=== PATIENT | male | born 1955 | race Caucasian/White ===

== ENCOUNTER 2016-10-12 07:24 | Outpatient (CLI) | payer MEDICAID ==
[2016-10-12 13:13] LABS: BASOPHILS % (AUTO) 0.6 %; EOSINOPHILS # (AUTO) 0.2 10^3/uL (0.0-0.7); EOSINOPHILS % (AUTO) 3.6 %; HCT - HEMATOCRIT 44.1 % (42.0-52.0); HGB - HEMOGLOBIN 15.6 g/dL (14.0-18.0); LYMPHOCYTES # (AUTO) 1.3 10^3/uL (1.5-3.5); LYMPHOCYTES % (AUTO) 25.5 %; MEAN CORPUSCULAR HEMOGLOBIN 31.3 pg (27.0-31.0); MEAN CORPUSCULAR HGB CONC 35.2 g/dL (32.0-36.0); MEAN CORPUSCULAR VOLUME 88.8 fL (80.0-94.0); MEAN PLATELET VOLUME 8.1 fL (7.4-11.4); MONOCYTES # (AUTO) 0.3 10^3/uL (0.0-1.0); MONOCYTES % (AUTO) 6.7 %; NEUTROPHILS # (AUTO) 3.2 10^3/uL (1.5-6.6); NEUTROPHILS % (AUTO) 63.6 %; NUCLEATED RED BLOOD CELLS AUTO 0.1 /100WBC; RED BLOOD COUNT 4.97 10^6/uL (4.70-6.10); RED CELL DISTRIBUTION WIDTH 12.6 % (12.0-15.0)
[2016-10-12 13:33] LABS: ALBUMIN/GLOBULIN RATIO 1.7 (1.0-2.2); BUN - BLOOD UREA NITROGEN 14 mg/dL (6-20); CALCIUM 9.4 mg/dL (8.5-10.3); CARBON DIOXIDE - CO2 27 mmol/L (21-32); CHLORIDE 105 mmol/L (101-111); CHOL/HDL RATIO 4.9 (<5.0); CHOLESTEROL 234 mg/dL; CREATININE 1.1 mg/dL (0.6-1.2); GFR - MDRD 68 (>89); GLUCOSE 100 mg/dL (70-100); HDL CHOLESTEROL 48 mg/dL; LDL/HDL RATIO 3.3 (<3.6); POTASSIUM 3.9 mmol/L (3.5-5.0); SODIUM 139 mmol/L (135-145); TOTAL PROTEIN 7.2 g/dL (6.7-8.2); TRIGLYCERIDES 138 mg/dL; VLDL CHOLESTEROL 28 mg/dL
== END 2016-10-12 07:25 | disposition home or self-care (01) ==
LOC: LAB.WCP 07:24
PROVIDERS: ATTEND Family Medicine
DX: R73.01 Impaired fasting glucose (principal); E78.5 Hyperlipidemia, unspecified; I10 Essential (primary) hypertension; Z12.5 Encounter for screening for malignant neoplasm of prostate
CPT/HCPCS: 36415; 80053; 80061; 84153; 84443; 85025

== ENCOUNTER 2017-05-14 14:22 | Outpatient (CLI) | payer MEDICAID ==
--- NOTE | 2017-05-14 15:31 | XRAY Report ---
THREE VIEW RIGHT FOOT: 05/14/2017 CLINICAL INDICATION: Chronic pain. FINDINGS: AP, lateral, oblique views of the right foot demonstrate moderate osteoarthritis of the first metatarsophalangeal joint. There is no evidence of acute fracture or dislocation. No radiopaque foreign body is seen in the soft tissues. Tiny plantar calcaneal spur is noted. IMPRESSION: MODERATE OSTEOARTHRITIS OF THE FIRST METATARSOPHALANGEAL JOINT. TD: 05/14/2017 15:30
== END 2017-05-14 14:23 | disposition home or self-care (01) ==
LOC: DI 14:22
PROVIDERS: ATTEND Podiatrist
DX: M19.071 Primary osteoarthritis, right ankle and foot (principal)

== ENCOUNTER 2017-11-23 07:28 | Outpatient (CLI) | payer MEDICAID ==
[2017-11-23 12:50] LABS: THYROID STIMULATING HORMONE 1.55 uIU/mL (0.34-5.60)
[2017-11-23 12:53] LABS: ALBUMIN 4.4 g/dL (3.2-5.5); ALBUMIN/GLOBULIN RATIO 1.8 (1.0-2.2); ALKALINE PHOSPHATASE 49 IU/L (42-121); ALT ALANINE AMINOTRANSFERASE 23 IU/L (10-60); AST ASPARTATE AMINOTRANSFERASE 19 IU/L (10-42); BILIRUBIN,TOTAL 1.3 mg/dL (0.2-1.0); BUN - BLOOD UREA NITROGEN 14 mg/dL (6-20); CALCIUM 9.6 mg/dL (8.5-10.3); CARBON DIOXIDE - CO2 28 mmol/L (21-32); CHLORIDE 104 mmol/L (101-111); CHOL/HDL RATIO 4.4 (<5.0); CHOLESTEROL 222 mg/dL; GFR - MDRD 76 (>89); GLUCOSE 107 mg/dL (70-100); HDL CHOLESTEROL 50 mg/dL; LDL CHOLESTEROL,CALCULATED 147 mg/dL; LDL/HDL RATIO 2.9 (<3.6); SODIUM 140 mmol/L (135-145); TOTAL PROTEIN 6.9 g/dL (6.7-8.2); VLDL CHOLESTEROL 25 mg/dL
[2017-11-23 13:01] LABS: FOLATE 17.77 ng/mL (5.90 - >24.8)
[2017-11-23 13:02] LABS: BASOPHILS % (AUTO) 0.7 %; EOSINOPHILS # (AUTO) 0.1 10^3/uL (0.0-0.7); EOSINOPHILS % (AUTO) 3.1 %; HGB - HEMOGLOBIN 15.5 g/dL (14.0-18.0); LYMPHOCYTES # (AUTO) 1.2 10^3/uL (1.5-3.5); LYMPHOCYTES % (AUTO) 24.8 %; MEAN CORPUSCULAR HEMOGLOBIN 31.7 pg (27.0-31.0); MEAN CORPUSCULAR HGB CONC 34.9 g/dL (32.0-36.0); MEAN CORPUSCULAR VOLUME 90.8 fL (80.0-94.0); MEAN PLATELET VOLUME 7.8 fL (7.4-11.4); MONOCYTES # (AUTO) 0.3 10^3/uL (0.0-1.0); MONOCYTES % (AUTO) 6.6 %; NEUTROPHILS % (AUTO) 64.8 %; PLT - PLATELET COUNT 209 10^3/uL (130-450); RED BLOOD COUNT 4.88 10^6/uL (4.70-6.10); RED CELL DISTRIBUTION WIDTH 12.4 % (12.0-15.0); WHITE BLOOD COUNT 4.7 x10^3/uL (4.8-10.8)
== END 2017-11-23 07:29 | disposition home or self-care (01) ==
LOC: LAB.WCP 07:28
PROVIDERS: ATTEND Family Medicine
DX: I10 Essential (primary) hypertension (principal); R41.3 Other amnesia; E78.5 Hyperlipidemia, unspecified
CPT/HCPCS: 36415; 80053; 80061; 82607; 82746; 83721; 83921; 84153; 84443; 85025

== ENCOUNTER 2020-09-11 08:00 | Outpatient (CLI) | payer MEDICAID, OTHER ==
[2020-09-11 11:57] LABS: BASOPHILS % (AUTO) 0.7 %; EOSINOPHILS # (AUTO) 0.1 10^3/uL (0.0-0.7); EOSINOPHILS % (AUTO) 0.9 %; HCT - HEMATOCRIT 43.6 % (42.0-52.0); HGB - HEMOGLOBIN 14.9 g/dL (14.0-18.0); LYMPHOCYTES # (AUTO) 0.7 10^3/uL (1.5-3.5); LYMPHOCYTES % (AUTO) 12.7 %; MEAN CORPUSCULAR HEMOGLOBIN 30.8 pg (27.0-31.0); MEAN CORPUSCULAR HGB CONC 34.2 g/dL (32.0-36.0); MEAN CORPUSCULAR VOLUME 90.3 fL (80.0-94.0); MEAN PLATELET VOLUME 9.8 fL (7.4-11.4); MONOCYTES # (AUTO) 0.4 10^3/uL (0.0-1.0); MONOCYTES % (AUTO) 6.3 %; NEUTROPHILS # (AUTO) 4.6 10^3/uL (1.5-6.6); NEUTROPHILS % (AUTO) 78.7 %; PLT - PLATELET COUNT 194 10^3/uL (130-450); RED BLOOD COUNT 4.83 10^6/uL (4.70-6.10); RED CELL DISTRIBUTION WIDTH 11.8 % (12.0-15.0); WHITE BLOOD COUNT 5.8 x10^3/uL (4.8-10.8)
[2020-09-11 12:21] LABS: ALBUMIN 4.4 g/dL (3.2-5.5); ALBUMIN/GLOBULIN RATIO 1.8 (1.0-2.2); ALKALINE PHOSPHATASE 59 IU/L (42-121); ALT ALANINE AMINOTRANSFERASE 21 IU/L (10-60); AST ASPARTATE AMINOTRANSFERASE 19 IU/L (10-42); BILIRUBIN,TOTAL 1.4 mg/dL (0.2-1.0); BUN - BLOOD UREA NITROGEN 14 mg/dL (6-20); CALCIUM 9.5 mg/dL (8.5-10.3); CARBON DIOXIDE - CO2 30 mmol/L (21-32); CHLORIDE 104 mmol/L (101-111); CHOL/HDL RATIO 2.9 (<5.0); CHOLESTEROL 208 mg/dL; GFR - MDRD 75 (>89); GLUCOSE 99 mg/dL (70-100); HDL CHOLESTEROL 71 mg/dL; LDL CHOLESTEROL,CALCULATED 123 mg/dL; LDL/HDL RATIO 1.7 (<3.6); POTASSIUM 4.3 mmol/L (3.5-5.0); SODIUM 141 mmol/L (135-145); TOTAL PROTEIN 6.9 g/dL (6.7-8.2); TRIGLYCERIDES 68 mg/dL; VLDL CHOLESTEROL 14 mg/dL
[2020-09-11 12:26] LABS: THYROID STIMULATING HORMONE 1.35 uIU/mL (0.34-5.60)
== END 2020-09-11 23:59 | disposition home or self-care (01) ==
LOC: LAB.WCP 08:00
PROVIDERS: ATTEND Family Medicine
DX: E78.5 Hyperlipidemia, unspecified (principal); G30.9 Alzheimer's disease, unspecified; I10 Essential (primary) hypertension; Z12.5 Encounter for screening for malignant neoplasm of prostate; F02.80 Dementia in other diseases classified elsewhere, unspecified severity, without behavioral disturbance, psychotic disturbance, mood disturbance, and anxiety
CPT/HCPCS: 36415; 80053; 80061; 83721; 84153; 84443; 85025

== ENCOUNTER 2021-12-03 07:45 | Outpatient (CLI) | payer MEDICARE, OTHER ==
[2021-12-03 11:43] LABS: BASOPHILS % (AUTO) 0.4 %; EOSINOPHILS # (AUTO) 0.1 10^3/uL (0.0-0.7); EOSINOPHILS % (AUTO) 0.8 %; HCT - HEMATOCRIT 45.2 % (42.0-52.0); HGB - HEMOGLOBIN 14.9 g/dL (14.0-18.0); LYMPHOCYTES # (AUTO) 0.6 10^3/uL (1.5-3.5); LYMPHOCYTES % (AUTO) 6.3 %; MEAN CORPUSCULAR HEMOGLOBIN 29.7 pg (27.0-31.0); MEAN CORPUSCULAR VOLUME 90.2 fL (80.0-94.0); MEAN PLATELET VOLUME 9.9 fL (7.4-11.4); MONOCYTES # (AUTO) 0.6 10^3/uL (0.0-1.0); MONOCYTES % (AUTO) 6.7 %; NEUTROPHILS # (AUTO) 8.1 10^3/uL (1.5-6.6); NEUTROPHILS % (AUTO) 85.6 %; PLT - PLATELET COUNT 188 10^3/uL (130-450); RED BLOOD COUNT 5.01 10^6/uL (4.70-6.10); WHITE BLOOD COUNT 9.5 x10^3/uL (4.8-10.8)
[2021-12-03 12:37] LABS: ALBUMIN 4.5 g/dL (3.2-5.5); ALBUMIN/GLOBULIN RATIO 1.7 (1.0-2.2); CALCIUM 9.6 mg/dL (8.5-10.3); CREATININE 1.1 mg/dL (0.6-1.2); POTASSIUM 4.2 mmol/L (3.5-5.0); TOTAL PROTEIN 7.1 g/dL (6.7-8.2)
[2021-12-03 13:00] LABS: ESTIMATED AVERAGE GLUCOSE 103 mg/dL (70-100); HEMOGLOBIN A1c% 5.2 % (4.27-6.07)
== END 2021-12-03 07:46 | disposition home or self-care (01) ==
LOC: LAB.N 07:45
PROVIDERS: ATTEND Nurse Practitioner
DX: I10 Essential (primary) hypertension (principal); R73.01 Impaired fasting glucose; R97.20 Elevated prostate specific antigen [PSA]
CPT/HCPCS: 36415; 80053; 83036; 84153; 85025

== ENCOUNTER 2022-06-05 15:13 | Outpatient (CLI) | payer MEDICARE ==
--- NOTE | 2022-06-05 16:53 | Ultrasound Report ---
PROCEDURE: Testicle INDICATIONS: LT TESTICULAR PX TECHNIQUE: Real-time scanning was performed of the scrotum and testicles, with image documentation. Color and p ulse Doppler interrogation was performed of both testicles. COMPARISON: None. FINDINGS: Right: Testicle is normal in size at 4.4 x 2.2 x 3.0 cm, and homogenous in echotexture. Epididymis demonstrates an epididymal cyst measuring less than 5 mm. No varicoceles. Trace hydrocele. Overlying scrotal skin is normal in thickness. Left: Testicle is normal in size at 3.7 x 1.6 x 2.6 cm, and homogeneous in echotexture. Epididymis is normal in overall size and morphology. Mild increased vascularity is noted within the epididymis. No hydrocele. Mild varicocele is present. Overlying scrotal skin is normal in thickness. Doppler: Color and pulse Doppler demonstrate normal and symmetric arterial flow in both testicles. IMPRESSION: Mild increased vascularity within the left epididymis suggestive of epididymitis. No torsion identified at time of exam. Intermittent torsion cannot be excluded. Reviewed by: Lou Whitman MD on 06/05/2022 4:52 PM PDT Approved by: Lou Whitman MD on 06/05/2022 4:52 PM PDT Station ID: [id number]
== END 2022-06-05 15:14 | disposition home or self-care (01) ==
LOC: DI 15:13
PROVIDERS: ATTEND Family Medicine
DX: N50.812 Left testicular pain (principal)

== ENCOUNTER 2022-09-07 10:36 | Emergency (ER) | payer MEDICARE ==
[2022-09-07 10:54] VITALS: BP 136/79
[2022-09-07 11:02] LABS: BASOPHILS # (AUTO) 0.1 10^3/uL (0.0-0.1); BASOPHILS % (AUTO) 1.2 %; EOSINOPHILS # (AUTO) 0.2 10^3/uL (0.0-0.7); EOSINOPHILS % (AUTO) 4.7 %; HCT - HEMATOCRIT 42.7 % (42.0-52.0); HGB - HEMOGLOBIN 14.5 g/dL (14.0-18.0); LYMPHOCYTES # (AUTO) 0.8 10^3/uL (1.5-3.5); LYMPHOCYTES % (AUTO) 19.4 %; MEAN CORPUSCULAR HEMOGLOBIN 30.2 pg (27.0-31.0); MEAN PLATELET VOLUME 9.5 fL (7.4-11.4); MONOCYTES # (AUTO) 0.3 10^3/uL (0.0-1.0); MONOCYTES % (AUTO) 5.9 %; NEUTROPHILS # (AUTO) 2.9 10^3/uL (1.5-6.6); NEUTROPHILS % (AUTO) 68.6 %; PLT - PLATELET COUNT 162 10^3/uL (130-450); RED CELL DISTRIBUTION WIDTH 12.1 % (12.0-15.0); WHITE BLOOD COUNT 4.2 x10^3/uL (4.8-10.8)
[2022-09-07 11:18] LABS: ALBUMIN/GLOBULIN RATIO 1.9 (1.0-2.2); BILIRUBIN,TOTAL 0.6 mg/dL (0.2-1.0); CALCIUM 9.2 mg/dL (8.5-10.3); CREATININE 1.2 mg/dL (0.6-1.3); MAGNESIUM 1.8 mg/dL (1.7-2.3); PHOSPHORUS 2.6 mg/dL (3.7-7.2); POTASSIUM 3.9 mmol/L (3.5-4.5); TOTAL PROTEIN 6.1 g/dL (6.4-8.9)
--- NOTE | 2022-09-07 11:26 | ED Physician Documentation ---
PD HPI ABD PAIN - Stated complaint Stated Complaint: GI - Chief complaint Chief Complaint: Abd Pain - History obtained from History obtained from: Patient, Family - Additional information Additional information: 67-year-old gentleman with history of dementia. As such much of the history is from the who is at the bedside. He presents with several months worth of abdominal pain and diarrhea which was acutely worse over the last few days. It is not associate with nausea or weight loss. No fevers. Is unclear when his last colonoscopy was, and the states "he may never have had 1." No history of abdominal surgeries. PD PAST MEDICAL HISTORY - Present Medications Home Medications: Ambulatory Orders Medication Instructions Recorded Confirmed Dicyclomine [Bentyl] 1 - 2 tab PO QID PRN #20 cap 09/07/22 - Allergies Allergies/Adverse Reactions: Allergies Allergy/AdvReac Type Severity Reaction Status Date / Time No Known Drug Allergies Allergy Verified 09/07/22 11:22 PD ED PE NORMAL - Vitals Vital signs reviewed: Yes - General General: Other (Pleasantly demented and confused, most of the history is from the . He is ANO x1.) - Cardiac Cardiac: RRR, No murmur - Respiratory Respiratory: No respiratory distress, Clear bilaterally - Abdomen Abdomen: Other (Diminished but not absent bowel sounds, nontender.) - Derm Derm: No rash - Extremities Extremities: No edema, No calf tenderness / cord Results - Vitals Vitals: Vital Signs - 24 hr 09/07/22 10:44 Temperature 36.8 C Heart Rate 64 Respiratory 15 Rate Blood Pressure 136/79 H O2 Saturation 98 Oxygen O2 Source Room air - Labs Labs: Laboratory Tests 09/07/22 09/07/22 09/07/22 10:56 10:56 12:51 WBC 4.2 L RBC 4.80 Hgb 14.5 Hct 42.7 MCV 89.0 MCH 30.2 MCHC 34.0 RDW 12.1 Plt Count 162 MPV 9.5 Neut # (Auto) 2.9 Lymph # (Auto) 0.8 L [place] # (Auto) 0.3 Eos # (Auto) 0.2 Baso # (Auto) 0.1 Absolute Nucleated RBC 0.00 Nucleated RBC % 0.0 Sodium 139 Potassium 3.9 Chloride 106 Carbon Dioxide 31 Anion Gap 2.0 L BUN 20 Creatinine 1.2 Estimated GFR (MDRD) 61 L Glucose 134 H Calcium 9.2 Phosphorus 2.6 L Magnesium 1.8 Total Bilirubin 0.6 AST 13 ALT 14 Alkaline Phosphatase 53 Total Protein 6.1 L Albumin 4.0 Globulin 2.1 Albumin/Globulin Ratio 1.9 Urine Color YELLOW Urine Clarity CLEAR Urine pH 6.5 Ur Specific [place] 1.010 Urine Protein NEGATIVE Urine Glucose (UA) NEGATIVE Urine Ketones NEGATIVE Urine Occult Blood NEGATIVE Urine Nitrite NEGATIVE Urine Bilirubin NEGATIVE Urine Urobilinogen 0.2 (NORMAL) Ur Leukocyte Esterase NEGATIVE Ur Microscopic Review NOT INDICATED Urine Culture Comments NOT INDICATED - Rads (name of study) CT of the abdomen and pelvis is unremarkable Relevant Findings:: Final report received, EMP independent interpretation of test PD Medical Decision Making - ED course ED course: 67-year-old gentleman with subacute to chronic diarrhea with abdominal cramps worse over the last few days with benign exam. Lab work notable for mild lymphopenia, hypophosphatemia on CMP that was repleted orally and normal urinalysis. He was unable to produce a stool sample here but unlikely that would be helpful given the timeframe. No recent antibiotics. Discussed with who is his caregiver as he has dementia that he probably needs a colonoscopy and should seek a referral for same and we will trial dicyclomine in the interim. Departure - Departure Disposition: 01 Home, Self Care Clinical Impression: Diarrhea Qualifiers: Diarrhea type: unspecified type Qualified Code(s): R19.7 - Diarrhea, unspecified Abdominal pain Qualifiers: Abdominal location: generalized Qualified Code(s): R10.84 - Generalized abdominal pain Condition: Good Record reviewed to determine appropriate education?: Yes Instructions: ED Abdominal Pain Unkn Cause Male Follow-Up: Blaire Arrieta ARNP [Primary Care Provider] - Prescriptions: Dicyclomine [Bentyl] 1 - 2 tab PO QID PRN #20 cap PRN Reason: Abdominal Pain Comments: As discussed, no worrisome diagnostic findings today on labs or CT. Given the acuity and complaints though talk with your primary care nurse practitioner about referral for colonoscopy. Return for new or worsening symptoms.
[2022-09-07] MEDS ORDERED: iohexoL-300 100 ML VIAL ONE (11:42)
[2022-09-07] MEDS ORDERED: NEUTRA-PHOS 250 MG TABLET PO STA (13:12)
[2022-09-07 13:22] LABS: BILIRUBIN,URINE NEGATIVE (NEGATIVE); GLUCOSE, URINE (UA) NEGATIVE (NEGATIVE); KETONES,URINE (UA) NEGATIVE (NEGATIVE); LEUKOCYTE ESTERASE, URINE NEGATIVE (NEGATIVE); NITRITE,URINE NEGATIVE (NEGATIVE); OCCULT BLOOD,URINE NEGATIVE (NEGATIVE); PH,URINE 6.5 PH (5.0-7.5); PROTEIN,URINE NEGATIVE (NEGATIVE); UROBILINOGEN,URINE 0.2 (NORMAL) E.U./dL (NORMAL)
[2022-09-07 13:24] LABS: CLARITY,URINE CLEAR (CLEAR)
--- NOTE | 2022-09-07 13:32 | CT Report ---
PROCEDURE: ABDOMEN/PELVIS W INDICATIONS: IV only, abdominal pain CONTRAST: 100ml Omni 300 TECHNIQUE: After the administration of IV contrast, 5 mm thick sections acquired from the diaphragms to the symp hysis. 5 mm thick coronal and sagittal reformats were acquired. For radiation dose reduction, the f ollowing was used: automated exposure control, adjustment of mA and/or kV according to patient size. COMPARISON: None FINDINGS: Image quality: Excellent. Lung bases and heart: Unremarkable. Liver: No solid mass. Gallbladder and biliary tree: Gallbladder is within normal limits. No biliary ductal dilatation. Spleen: No splenomegaly. Pancreas: No pancreatic ductal dilation. Adrenals: No adrenal nodule. Kidneys and ureters: No hydronephrosis. No renal cystic lesion which requires follow up. No solid mas s. Bowel and peritoneum: No bowel distension. No pathologic free fluid. No evidence of acute appendiciti s. Lymph nodes: No central or retroperitoneal adenopathy. Vessels: No infrarenal aortic aneurysm. PELVIS Reproductive organs: Unremarkable. Bladder: No abnormal wall thickening, accounting for underdistension. Pelvic lymph nodes: No pelvic adenopathy by size criteria. Bones: No aggressive osseous abnormality. Other: No significant ventral or inguinal hernia. IMPRESSION: 1. No acute inflammatory process is seen in abdomen or pelvis. No bowel obstruction. No free fluid or free air. No evidence of acute appendicitis. 2. No obstructing renal stones or hydronephrosis. No hydroureter. Normal-appearing urinary bladder. Reviewed by: Jose Juan Donaldson MD on 09/07/2022 12:32 PM PDT Approved by: Jose Juan Donaldson MD on 09/07/2022 12:32 PM PDT Station ID: [id number]
[2022-09-07] MEDS ORDERED: iohexoL-300 100 ML VIAL IVP ONE (13:40)
== END 2022-09-07 13:43 | disposition home or self-care (01) ==
LOC: ED 10:36
DX: R10.84 Generalized abdominal pain (principal); R19.7 Diarrhea, unspecified; E83.39 Other disorders of phosphorus metabolism
CPT/HCPCS: 36415; 74177; 80053; 81003; 83735; 84100; 85025; 87493; 99284; A9270; Q9967; 81001; 87045; 87046; 87086; 87427

== ENCOUNTER 2022-12-04 07:41 | Outpatient (CLI) | payer MEDICARE | END 2022-12-04 07:42 | disposition critical access hospital (66) | LOC: EMS 07:41 | DX: R56.9 Unspecified convulsions (principal); F03.911 Unspecified dementia, unspecified severity, with agitation; Z78.1 Physical restraint status | CPT/HCPCS: A0425; A0427 ==

== ENCOUNTER 2022-12-04 07:59 | Emergency (ER) | payer MEDICARE ==
--- NOTE | 2022-12-04 08:07 | ED Physician Documentation ---
PD HPI SEIZURE - Stated complaint Stated Complaint: SZ/COMBATIVE - History obtained from History obtained from: Family, EMS - History of Present Illness Timing - onset: How many minutes ago (30), Today Witnessed: Witnessed Number of seizures: Single, Lasted minutes (1-2) Description of seizure activity: Generalized Injury during seizure: None (was lying in bed with it.) Associated symptoms: Unknown (he is mainly nonverbal with advanced dementia.) History of seizures: Known seizure disorder (admitted 11/12/22 for altered mental status that sounds like may have been seizure. Has referral with Neurology without appt date set as yet.) Contributing factors: Other (not on AED at this time. Lexapro prior med and had added Trazodone 50 mg at bed with recent discharge.) Similar symptoms before: No diagnosis Review of Systems Unable to obtain: Dementia PD PAST MEDICAL HISTORY - Past Medical History Cardiovascular: None Respiratory: None Neuro: Dementia Endocrine/Autoimmune: None - Past Surgical History Past Surgical History: No - Present Medications Home Medications: Ambulatory Orders Medication Instructions Recorded Confirmed Escitalopram [Lexapro] 10 mg PO DAILY 11/12/22 11/12/22 Escitalopram [Lexapro] 10 mg PO DAILY tab 11/14/22 Lidocaine Patch 5% [Lidoderm Patch] 1 patch TOP DAILY PRN 7 Days #7 11/14/22 patch traZODone [Desyrel] 50 mg PO QPM 30 Days #30 tab 11/14/22 Levetiracetam [Keppra] 500 mg PO BID 30 Days #60 tablet 12/04/22 - Allergies Allergies/Adverse Reactions: Allergies Allergy/AdvReac Type Severity Reaction Status Date / Time No Known Drug Allergies Allergy Verified 12/04/22 08:15 - Social History Does the pt smoke?: No Smoking Status: Never smoker Does the pt drink ETOH?: No Does the pt have substance abuse?: No PD ED PE NORMAL - Vitals Vital signs reviewed: Yes - General General: No acute distress, Well developed/nourished, Other (groggy, somewhat restless. trying to get out of bed and pull at IV. Needs to get IV seizure med dosing. Nonverbal at this time. ) - HEENT HEENT: Atraumatic, Pharynx benign - Neck Neck: Supple, no meningeal sign, No adenopathy - Cardiac Cardiac: RRR, No murmur - Respiratory Respiratory: Clear bilaterally - Abdomen Abdomen: Soft, Non tender - Derm Derm: Normal color, Warm and dry - Extremities Extremities: No tenderness to palpate, Normal ROM s pain - Neuro Neuro: No motor deficit (moving all extremities.), No sensory deficit (withdraws to touch/pinprick.) Results - Vitals Vitals: Vital Signs - 24 hr 12/04/22 12/04/22 08:06 08:42 Temperature 36.1 C L Heart Rate 96 104 H Respiratory 20 20 Rate Blood Pressure 165/104 H O2 Saturation 95 97 Oxygen O2 Source Room air - Labs Labs: Laboratory Tests 12/04/22 12/04/22 08:20 08:20 WBC 5.1 RBC 4.84 Hgb 14.6 Hct 43.3 MCV 89.5 MCH 30.2 MCHC 33.7 RDW 12.5 Plt Count 141 MPV 11.1 Neut # (Auto) 3.6 Lymph # (Auto) 0.8 L [place] # (Auto) 0.4 Eos # (Auto) 0.2 Baso # (Auto) 0.1 Absolute Nucleated RBC 0.00 Nucleated RBC % 0.0 Sodium 142 Potassium 3.9 Chloride 108 Carbon Dioxide 25 Anion Gap 9.0 BUN 16 Creatinine 1.2 Estimated GFR (MDRD) 61 L Glucose 102 Calcium 9.1 Magnesium 2.1 Total Bilirubin 0.8 AST 18 ALT 13 Alkaline Phosphatase 179 H Total Creatine Kinase 100 Total Protein 6.1 L Albumin 4.1 Globulin 2.0 L Albumin/Globulin Ratio 2.1 Lipase 38 Vitamin B12 230 Ethyl Alcohol < 10.0 PD Medical Decision Making - ED course Complexity details: reviewed old records (recent admission 11/12/22 for altered mental status and agitation that improved after part of a day. No firm diagnosis. Referred to Neurology and states appt is in Nov early. ), reviewed results, considered differential (witnessed seizure like activity. AMS with possible seizure post ictal a month ago. no AED meds right now. Can start Keppra. Given symptomatic meds for agitation here. ), d/w patient, d/w family ( arrived as patient was much improving in cooperativeness and some conversant. He recognized her and was calmed. AMbulatory to bathroom. ) ED course: witnessed seizure activity today with few hours of slow return to normal interaction at baseline level of dementia. had had head CT imaging 2 weeks ago. No apparent injury. I did not see need for repeating imaging. subsequently agreed when she arrived. She is comfortable taking pt home as he is at baseline at this time. On arrival to ER, he was agitated and restless getting out of bed and pulling at IV. Seemed post ictal and needed soft restraints for nonviolent. This improved gradually and became interactive and cognizant of requests and direction. Departure - Departure Disposition: Home, Self Care Clinical Impression: New onset seizure, Chronic dementia Condition: Stable Record reviewed to determine appropriate education?: Yes Instructions: ED Seizure New Onset Unk Cause Prescriptions: Levetiracetam [Keppra] 500 mg PO BID 30 Days #60 tablet Comments: You did have a witnessed seizure today at home. Your pattern of confusion and agitation afterwards is common after seizure episode. In retrospect your episode 3 weeks ago is most likely is a similar thing even though was not clear at the time being not a witnessed event. I would presume therefore this would be your second seizure. Most commonly the neurologist would start a seizure medicine called Eric to try to reduce the incidence of these. Typically starts at a low dose of 500 mg twice daily. I wrote a prescription for this. Follow-up with your neurology appointment in December. You could call their office and see if there is a sooner appointment though December is not unreasonable. Follow-up with your primary care otherwise. Continue your other home medications. Usual diet and activity and fluid intake. I sent your prescriptions to [facility] pharmacy. Return as needed. Forms: PCP List Discharge Date/Time: 12/04/22 11:54
[2022-12-04] MEDS ORDERED: levETIRAcetam 500 MG/5 ML VIAL IVP STA (08:12)
[2022-12-04 08:15] VITALS: BP 165/104
[2022-12-04 08:25] LABS: BASOPHILS # (AUTO) 0.1 10^3/uL (0.0-0.1); EOSINOPHILS # (AUTO) 0.2 10^3/uL (0.0-0.7); EOSINOPHILS % (AUTO) 4.1 %; HCT - HEMATOCRIT 43.3 % (42.0-52.0); HGB - HEMOGLOBIN 14.6 g/dL (14.0-18.0); LYMPHOCYTES # (AUTO) 0.8 10^3/uL (1.5-3.5); LYMPHOCYTES % (AUTO) 15.9 %; MEAN CORPUSCULAR HEMOGLOBIN 30.2 pg (27.0-31.0); MEAN CORPUSCULAR HGB CONC 33.7 g/dL (32.0-36.0); MEAN CORPUSCULAR VOLUME 89.5 fL (80.0-94.0); MEAN PLATELET VOLUME 11.1 fL (7.4-11.4); MONOCYTES # (AUTO) 0.4 10^3/uL (0.0-1.0); MONOCYTES % (AUTO) 7.1 %; NEUTROPHILS # (AUTO) 3.6 10^3/uL (1.5-6.6); NEUTROPHILS % (AUTO) 71.7 %; PLT - PLATELET COUNT 141 10^3/uL (130-450); RED BLOOD COUNT 4.84 10^6/uL (4.70-6.10); RED CELL DISTRIBUTION WIDTH 12.5 % (12.0-15.0); WHITE BLOOD COUNT 5.1 x10^3/uL (4.8-10.8)
[2022-12-04] MEDS ORDERED: HALOPERIDOL 5 MG/ML VIAL IVP STA ×2 (08:27→09:21)
[2022-12-04] MEDS ORDERED: MIDAZOLAM 2 MG/2 ML VIAL IVP STA (08:27)
[2022-12-04] MEDS ORDERED: HALOPERIDOL 5 MG/ML VIAL ONE (08:38)
[2022-12-04] MEDS ORDERED: MIDAZOLAM 2 MG/2 ML VIAL ONE (08:38)
[2022-12-04 08:44] VITALS: O2SAT 97
[2022-12-04 09:01] LABS: ALBUMIN 4.1 g/dL (3.2-5.5); CK- CREATINE KINASE 100 IU/L (30-223); ETOH - ETHANOL < 10.0 mg/dL; LIPASE 38 U/L (11-82); MAGNESIUM 2.1 mg/dL (1.7-2.3)
[2022-12-04 09:02] LABS: ALBUMIN/GLOBULIN RATIO 2.1 (1.0-2.2); ALKALINE PHOSPHATASE 179 IU/L (42-121); ALT ALANINE AMINOTRANSFERASE 13 IU/L (10-60); AST ASPARTATE AMINOTRANSFERASE 18 IU/L (10-42); BILIRUBIN,TOTAL 0.8 mg/dL (0.2-1.0); BUN - BLOOD UREA NITROGEN 16 mg/dL (6-20); CALCIUM 9.1 mg/dL (8.5-10.3); CARBON DIOXIDE - CO2 25 mmol/L (21-32); CHLORIDE 108 mmol/L (101-111); CREATININE 1.2 mg/dL (0.6-1.3); GFR - MDRD 61 (>89); GLUCOSE 102 mg/dL (74-104); POTASSIUM 3.9 mmol/L (3.5-4.5); SODIUM 142 mmol/L (135-145); TOTAL PROTEIN 6.1 g/dL (6.4-8.9)
== END 2022-12-04 11:54 | disposition home or self-care (01) ==
LOC: EDUNIT# → ED 07:59
DX: R56.9 Unspecified convulsions (principal); F03.90 Unspecified dementia, unspecified severity, without behavioral disturbance, psychotic disturbance, mood disturbance, and anxiety
CPT/HCPCS: 36415; 80053; 82550; 82607; 83690; 83735; 85025; 96374; 96375; 96376; 99284; 99285; G0480; 80320